=== PATIENT | female | born 1980 | race African-American/Black ===

== ENCOUNTER 2016-10-08 20:43 | Emergency (ER) ==
[2016-10-08 21:17] VITALS: BP 162/092
--- NOTE | 2016-10-08 21:29 | PROVIDER DOCUMENTATION ---
HPI-Musculoskeletal Pain/Inj - GENERAL Chief Complaint: Extremity Pain Stated Complaint: LEG PAIN Time Seen by Provider: 10/08/16 21:19 Source: patient - HX OF PRESENT ILLNESS-MUSKULOSKELTAL Nature of Presenting Problem: PT IS A 35YOF PRESENTING TO THE ED C/O LLE PAIN. PT HAS A HISTORY OF LLE CELLULITIS AND TODAY ITS HURTING WORSE THAN BEFORE. NO OTHER COMPLAINTS NOTED AT THIS TIME Quality of Pain: reports: aching, throbbing Severity in ED: moderate Onset/Duration: 24 hours ago Timing: still present Modifying Factors: improves with: nothing Any recent injury?: No Locality of Occurance: Home Similar Symptoms Previously?: No Recently seen or treated by another doctor?: No Review of Systems - Adult - REVIEW OF SYSTEMS - ADULT Constitutional: reports: no symptoms reported Eyes: reports: no symptoms reported Ears, Nose, Mouth & Throat: reports: no symptoms reported Cardiovascular: reports: no symptoms reported Respiratory: reports: no symptoms reported Gastrointestinal: reports: no symptoms reported Genitourinary: reports: no symptoms reported Musculoskeletal: reports: see HPI, muscle aches, muscle weakness. denies: neck pain Integumentary: reports: see HPI, skin sores/ulcer, skin thickening. denies: hair loss Neurological: reports: no symptoms reported Psychiatric: reports: no symptoms reported Endocrine: reports: no symptoms reported Hematologic/Lymphatic: reports: no symptoms reported Allergic/Immunologic: reports: no symptoms reported All Other Systems: Reviewed and Negative Past History - Adult - PAST MEDICAL HISTORY-ADULT Review of Records: reports: Old Records Reviewed, Nursing Assessment Review, Medications Reviewed, Social history reviewed & non-contributory. Major Childhood Illnesses: reports: denies history Cardiovascular: reports: denies history Respiratory: reports: denies history Gastrointestinal: reports: denies history Obstetrical/Gynecological: reports: denies history Genitourinary: reports: denies history Musculoskeletal: reports: denies history Neurological: reports: denies history Endocrine/Immune: reports: denies history Other Conditions: reports: denies history - IMMUNIZATION STATUS Childhood Immunizations: See Nurse Assessment Flu Vaccine: See Nurse Assessment - FAMILY HISTORY Family History: reviewed, not pertinent - SOCIAL HISTORY Smoking: cigarettes, less than 1 pack/day Provider spent 3-5 mins advising pt. on dangers of tobacco.: Discussed manners to quit use, and f/u contacts for add'l counseling. Substance Use: none/never, denies Alcohol Use Frequency: never Living Situation: family Physical Exam-Injury Related - Physical Exam-Injury Related Initial Vital Signs Reviewed: Yes General Appearance: alert, mild distress, anxious. negative: appears well, no apparent distress Eyes: PERRL/EOMI, pink conjunctivae, fundi clear, no AV nicking Head, Ears, Nose, Mouth & Throat: normocephalic/atraumatic, moist mucous membranes, normal ENT inspection, TMs normal, pharynx normal Neck: non-tender, full range of motion, supple, normal inspection Respiratory: chest non-tender, lungs clear, normal breath sounds, no pleuratic chest pain, no respiratory distress, no accessory muscle use Cardiovascular: normal peripheral pulses, regular rate, rhythm, no edema, no gallop, no JVD, no murmur Abdominal Exam: normal bowel sounds, non tender, soft, no organomegaly, no pulsatile mass Lymphatic: no adenopathy Back Exam: normal inspection, no CVA tenderness, no vertebral tenderness Extremity: no calf tenderness, normal capillary refill, inflammation, pedal edema, tenderness. negative: normal range of motion, non-tender, normal gait, normal inspection, no pedal edema Integumentary: normal color, warm/dry Neurologic: chief fishery division II-XII nml as tested, grossly normal, no motor/sensory deficits Psych/Mental Status: normal mood/affect, normal thought content, normal thought process, oriented x 3 - Glascow Coma Score Best Eye Response ([place]): (4) open spontaneously Best Verbal Response (Yadi): (5) oriented Best Motor Response ([place]): (6) obeys commands Progress - PLAN OF CARE/RESULTS Progress/Plan/Lab Results: Vital Signs - 24 hr 10/08/16 21:13 Temperature 96.9 F L Pulse Rate 84 Respiratory 18 Rate Blood Pressure 162/092 O2 Sat by Pulse 98 Oximetry Vital Signs - 24 hr 10/08/16 21:13 Temperature 96.9 F L Pulse Rate 84 Respiratory 18 Rate Blood Pressure 162/092 O2 Sat by Pulse 98 Oximetry Departure - Departure Time of Disposition Order: 21:28 DIAGNOSIS: Cellulitis Qualifiers: Site of cellulitis: extremity Site of cellulitis of extremity: lower extremity Laterality: left Qualified Code(s): L03.116 - Cellulitis of left lower limb Disposition: HOME 01 Certified Medical Emergency: Emergent Condition: Stable Prescriptions: Sulfamethoxazole/Trimethoprim [Bactrim Ds Tablet] 2 each PO BID #40 tablet Clindamycin [Cleocin] 300 mg PO Q6HR #40 capsule Prednisone 20 mg PO BID #10 tablet Attestation - Scribe Verification/Attestation Scribe:: Denia Abdullahi Acting as Scribe for:: Roverto Addison Scribe documention review:: This chart was documented by a scribe and accurately reflects the service the provider performed and the decisions made by the provider. Physician Attestation - Physician Attestation I, the provider, attest to the following statement:: Roverto Addison Physician documentation Attestation:: This documentation recorded by the scribe accurately reflects the service I personally performed and the decisions made by me.
== END 2016-10-08 21:32 | disposition home or self-care (01) ==
LOC: P.ED 20:43
DX: L03.116 Cellulitis of left lower limb (principal); M79.605 Pain in left leg; M79.1 Myalgia; M62.81 Muscle weakness (generalized); L98.9 Disorder of the skin and subcutaneous tissue, unspecified; R23.4 Changes in skin texture; F17.210 Nicotine dependence, cigarettes, uncomplicated; Z71.6 Tobacco abuse counseling

== ENCOUNTER 2019-03-21 21:00 | Inpatient (IN) ==
[2019-03-21 21:45] LABS: BASO% 0.3 % (0.0-0.8); EOS% 0.8 % (0.0-10.0); HEMATOCRIT 35.1 % (37.0-47.0); HEMOGLOBIN 11.2 g/dL (12.0-16.0); IMM GRAN% 0.1 % (0.0-0.5); LYMPH% 16.7 % (20.5-51.1); MCH 20.8 PG (27-31); MCHC 31.9 g/dL (33-37); MCV 65.2 FL (81-99); MPV 9.8 FL (7.4-10.4); NEUT% 76.1 % (42.2-75.2); PLT 264 X1000 (130-400); RBC 5.38 XMIL (4.2-5.4); WBC 13.45 X1000 (4.8-10.8)
[2019-03-21 21:46] LABS: BASO# 0.04 X1000 (0.0-0.2); EOS# 0.11 X1000 (0.0-0.7); IMM GRAN# 0.02 X1000 (0.0-0.04); LYMPH# 2.24 X1000 (1.2-3.4); MONO# 0.81 X1000 (0.11-0.59); NEUT# 10.23 X1000 (1.4-6.5)
[2019-03-21 22:21] LABS: AGAP 14; ALB/GLOB RATIO 1.1; ALBUMIN 4.6 g/dL (3.5-5.0); ALKALINE PHOSPHATASE 92 U/L (32-104); BUN 8 mg/dL (8-22); CALCIUM 9.7 mg/dL (8.8-10.2); CHLORIDE 100 mmol/L (98-107); COSMO 273; CREATININE 0.5 mg/dL (0.5-0.9); ESTIMATED GFR > 60; GLUCOSE 86 mg/dL (70-104); GOT 14 U/L (10-30); GPT 14 U/L (10-36); POTASSIUM 3.6 mmol/L (3.5-5.1); SODIUM 138 mmol/L (136-145); TCO2 24 mmol/L (25-35); TOTAL BILIRUBIN 0.35 mg/dL (0.20-1.00); TOTAL PROTEIN 8.6 g/dL (6.3-8.3)
--- NOTE | 2019-03-21 23:02 | PROVIDER DOCUMENTATION ---
HPI-Fever - General Chief Complaint: Rash Stated Complaint: CELLULITIS Time Seen by Provider: 03/21/19 22:35 Source: patient Allergies/Adverse Reactions: Patient Allergies Allergy/AdvReac Type Severity Reaction Status Date / Time bismuth subsalicylate Allergy SWELLING Verified 01/19/15 18:47 [From Pepto-Bismol] Home Medications: Home Medication List Medication Instructions Recorded Confirmed Last Taken Type Uag386/FA/Omega3/Dha/Fish Oil 2 each PO DAILY 03/10/18 03/10/18 03/09/18 09:00 History [ Gummies] Amlodipine [Norvasc] 10 mg PO DAILY #30 tab 03/12/18 Unknown Rx Hydrocodone/APAP 5 mg/325 mg 1 ea PO Q3-4H PRN PRN #20 tab 03/12/18 Unknown Rx [[place]-5] Labetalol [Trandate] 200 mg PO TID #120 tab 03/12/18 Unknown Rx - History of Present Illness-Fever Nature of Presenting Problem: [id number] presents to the ER with c/o cellulitis to her RLE. She reports that she has had cellulitis in her lower extremities in the past but never this bad. She states that approx 1 week ago, she had a mosquito bite to the back of her right leg. Shortly after her leg began to swell. She went to the doctor and was diagnosed with a UTI. The MD placed her on Macrobid. The patient states she thought the antibiotic was for both the cellulitis and her UTI. However, her leg continued to swell and became red. She reports today she began to run fever and was unable to bear weight on the extremity. T-max (101.2) Fever Severity/Quality: reports: greater than 100.5 F Onset/Duration: reports: 1 week ago Timing: reports: getting worse Context: reports: none Recent Illness?: reports: UTI Cognitive Baseline: alert, oriented x3 Associated Symptoms: reports: trouble walking Similar Symptoms Previously?: Yes Recently seen or treated by another doctor?: Yes - Glascow Coma Score Best Eye Response ([place]): (4) open spontaneously Best Verbal Response ([place]): (5) oriented Best Motor Response ([place]): (6) obeys commands Yadi Total: 15 Review of Systems - Adult - REVIEW OF SYSTEMS - ADULT Constitutional: reports: see HPI, chills, fever Eyes: reports: no symptoms reported Ears, Nose, Mouth & Throat: reports: no symptoms reported. denies: ear discharge, ear pain, epistaxis, hoarseness, throat swelling Cardiovascular: reports: no symptoms reported. denies: chest pain, poor circulation, syncope Respiratory: reports: no symptoms reported. denies: chronic cough, dyspnea on exertion, shortness of breath, wheezing Gastrointestinal: reports: no symptoms reported. denies: abdominal pain, diarrhea, nausea, vomiting Genitourinary: reports: no symptoms reported Musculoskeletal: reports: no symptoms reported Integumentary: reports: see HPI, other (RLE cellulitis) Neurological: reports: no symptoms reported Psychiatric: reports: no symptoms reported Endocrine: reports: no symptoms reported Hematologic/Lymphatic: reports: no symptoms reported Allergic/Immunologic: reports: no symptoms reported All Other Systems: Reviewed and Negative Past History - Adult - PAST MEDICAL HISTORY-ADULT Review of Records: reports: Old Records Reviewed, Nursing Assessment Review, Medications Reviewed, Social history reviewed & non-contributory. Major Childhood Illnesses: reports: denies history Cardiovascular: reports: denies history Respiratory: reports: denies history Gastrointestinal: reports: denies history Obstetrical/Gynecological: reports: denies history Genitourinary: reports: denies history Musculoskeletal: reports: denies history Neurological: reports: denies history Endocrine/Immune: reports: denies history Other Conditions: reports: denies history - PRIOR SURGERIES/PROCEDURES Surgical/Procedure History: reports: - IMMUNIZATION STATUS Childhood Immunizations: See Nurse Assessment Flu Vaccine: See Nurse Assessment - FAMILY HISTORY Family History: reviewed, not pertinent - SOCIAL HISTORY Smoking: denies Substance Use: denies Living Situation: family Physical Exam-General - PHYSICAL EXAM-ADULT Initial Vital Signs Reviewed: Yes - CONSTITUTIONAL General Appearance: alert, mild distress - EYES Eyes: PERRL/EOMI, pink conjunctivae - HEAD, EARS, NOSE, MOUTH & THROAT HENMT: normocephalic/atraumatic, moist mucous membranes - NECK Neck: non-tender, full range of motion, normal inspection - RESPIRATORY Respiratory: chest non-tender, lungs clear, normal breath sounds - CARDIOVASCULAR Cardiovascular: normal peripheral pulses, regular rate, rhythm - GASTROINTESTINAL (ABDOMEN) Abdominal Exam: normal bowel sounds, non tender, soft - LYMPHATIC Lymphatic: no adenopathy - MUSCULOSKELETAL Back Exam: normal inspection Extremity: normal range of motion, erythema (RLE), inflammation (RLE), tenderness (RLE). negative: normal gait Peripheral Pulses: radial (R): 2+, radial (L): 2+, dorsalis-pedis (R): 2+, dorsalis-pedis (L): 2+ - SKIN Integumentary: erythema (RLE), tenderness (RLE), warm (RLE) - NEUROLOGIC Neurologic: grossly normal - PSYCHIATRIC Psych/Mental Status: oriented x 3 Progress - PLAN OF CARE/RESULTS Progress/Plan/Lab Results: Vital Signs - 8 hr 03/21/19 21:04 Temperature 101.2 F H Pulse Rate 116 H Respiratory Rate 20 Blood Pressure 124/84 O2 Sat by Pulse Oximetry 99 Laboratory Results - last 24 hr 03/21/19 03/21/19 03/21/19 21:18 21:18 21:18 WBC 13.45 H RBC 5.38 Hgb 11.2 L Hct 35.1 L MCV 65.2 L MCH 20.8 L MCHC 31.9 L RDW Std Deviation 17.0 H Plt Count 264 MPV 9.8 Immature Gran % (Auto) 0.1 Neut % (Auto) 76.1 H Lymph % (Auto) 16.7 L [place] % (Auto) 6.0 Eos % (Auto) 0.8 Baso % (Auto) 0.3 Immature Gran # (Auto) 0.02 Neut # (Auto) 10.23 H Lymph # (Auto) 2.24 [place] # (Auto) 0.81 H Eos # (Auto) 0.11 Baso # (Auto) 0.04 Sodium 138 Potassium 3.6 Chloride 100 Carbon Dioxide 24 L Anion Gap 14 BUN 8 Creatinine 0.5 Estimated GFR/1.73 m2 > 60 BUN/Creatinine Ratio 16 Glucose 86 Calculated Osmolality 273 Calcium 9.7 Total Bilirubin 0.35 AST 14 ALT 14 Alkaline Phosphatase 92 Total Protein 8.6 H Albumin 4.6 Globulin 4.0 Albumin/Globulin Ratio 1.1 Plasma Lactate 0.8 Orders Category Date Time Status BLOOD CULTURE [BLDCUL] Stat Lab 03/21/19 21:18 Ordered CBC WITH ELECTRONIC DIFF [HEME] Stat Lab 03/21/19 21:18 Completed COMPREHENSIVE METABOLIC PANEL [CHEM] Stat Lab 03/21/19 21:18 Completed LACTATE, PLASMA [CHEM] Stat Lab 03/21/19 21:18 Completed patient verbalizes an understanding of POC and agrees with treatment rendered here today. Result Diagrams: 03/21/19 21:18 03/21/19 21:18 - CONSULTS/PCP/HOSPITALIST Notification #1 *Consult/PCP/Hospitalist*: Dr Austin Time Discussed: 23:20 Reason/Comments: RLE cellulitis Consult Disposition: Admit Departure - Departure Date of Disposition Decision: 03/21/19 Time of Disposition Decision: 23:20 DIAGNOSIS: Cellulitis, leg Qualifiers: Laterality: right Qualified Code(s): L03.115 - Cellulitis of right lower limb Disposition: ADMITTED INPATIENT 09 Certified Medical Emergency: Emergent Condition: Critical Additional Freetext Instructions: ED Follow Up Instructions: You have been treated by a care provider in the Emergency Department. These instructions are being provided to you so you can have an understanding of how to care for yourself upon discharge. Upon discharge from the Emergency Department, you are responsible for making arrangements for follow-up care by a physician of your choice. Take all prescribed medications as directed. Return to the Emergency Department immediately for any new or worsening symptoms. You may call the Physician Referral phone number at [phone] to obtain a list of Physicians who are taking new patients. Referrals and Follow-Ups: Arden Aguilar MD [Primary Care Provider] - - Critical Care Note This patient required my direct & personal management of CC.: No Attestation - Physician/ MACARIO Attestation Patient care was provided by Advanced Practice Provider:: Yes Advanced Practice Provider:: Ramos Morales Advanced Practice Provider documentation review:: The Mid-level provider documentation, treatment plan and medical decision making was reviewed by the physician who agrees with all treatment and medical decision making by the MLP. The physician spent face to face time with patient:: No Advanced Practice Provider documentation review:: Supervising physician onsite and consulted in the evaluation and care of this patient. The physician did not have a face to face encounter with the patient.
[2019-03-22] MEDS ORDERED: TORADOL IV ONE (00:10)
[2019-03-22] MEDS ORDERED: VANCOMYCIN IV PER PHARMACY MISC SCH ×2 (00:15→01:58)
[2019-03-22] MEDS ORDERED: MORPHINE IV ONE (00:48)
[2019-03-22] MEDS ORDERED: VANCOMYCIN 2,000 MG in NS 500 ML IV ONE (01:00)
[2019-03-22 01:09] LABS: RETIC% 0.71 % (0.8-2.1); RETIC-HE 20.9 PG (28.2-36.6)
[2019-03-22] MEDS ORDERED: TYLENOL PO PRN (01:58)
[2019-03-22] MEDS ORDERED: NS 1,000 ML IV SCH (01:58)
[2019-03-22] MEDS ORDERED: ZOFRAN IV PRN (01:58)
--- NOTE | 2019-03-22 02:22 | HISTORY AND PHYSICAL ---
PRIMARY CARE PHYSICIAN: Dr. Arden Aguilar. REASON FOR ADMISSION: A 5-day history of right lower extremity swelling, pain, and redness. HISTORY OF PRESENT ILLNESS: Ms. Jolynn Cardoza is a 38-year-old, woman who has a past medical history of hypertension. Reports that she was bitten by some insect about 5 to 6 ago, and the surrounding the spot she noticed that some pain had been progressing, to the point that 3 days ago she noticed redness on the anterior lateral aspect of her right leg. The redness has progressed along with pain, which has simultaneously been getting worse. Today, she came in because she developed some subjective fever and chills, and the pain was unbearable, to the point she could not even bear weight on her right leg. She denied any antecedent history of trauma or long-distance travel. No polyuria or polydipsia. No cardiorespiratory complaints. No GI or complaints. No focal neurological complaints. REVIEW OF SYSTEMS: Twelve system review was done. ALLERGIES: Pepto-Bismol. HOME MEDICATIONS: Have not been reconciled, although she mentions she takes labetalol and amlodipine. SURGICAL HISTORY: Two C-sections. FAMILY HISTORY: Positive for breast, ovarian, uterine cancer in 1st degree relatives, and type 2 diabetes also positive. SOCIAL HISTORY: Does not smoke, drink, or use drugs. LABS: White count 13,000, hemoglobin and hematocrit 11 and 35, MCV 65, RDW 17, with 76% neutrophils, platelets 263,000. Potassium 3.6. Glucose is 86. Lactate is normal. PHYSICAL EXAMINATION: GENERAL: Morbidly obese, woman. She is in mild distress from the pain of the right lower extremity. VITAL SIGNS: Blood pressure 160/91, heart rate 99, respirations 20, temperature is 98.9 degrees. HEENT: Head is normocephalic, atraumatic. Eyes: IVORY, EOMI. She is anicteric, not pale. ENT and oropharyngeal exam is grossly normal. NECK: Supple. No JVD or carotid bruit. No thyromegaly. CHEST: Clear with auscultated. Good air entry both lung sotelo. CARDIOVASCULAR: First and 2nd heart sounds are heard. No gallops, murmurs, rubs. Rhythm is regular. ABDOMEN: Protuberant, soft, nontender. No mass or organomegaly. Bowel sounds are normal. RECTAL: Deferred at this time. EXTREMITIES: 2+ pitting edema and swelling of the right lower extremity. It is very warm to hot to touch, and it is tender to touch. There is erythema on the anterolateral aspect of the right lower extremity from the knee down to the ankle area. There is no induration of the skin. No fluctuance appreciated. Pulses distally in all extremities are full, regular, symmetrical. NEUROLOGICAL: No gross focal deficits. SKIN: Intact other than the findings noted as above. MUSCULOSKELETAL: Grossly normal. ASSESSMENT: 1. Right lower extremity cellulitis. 2. Hypertension, uncontrolled. 3. Morbid obesity. PLAN: We will do a venous Doppler study of the right lower extremity to rule out coexistent DVT. We will start patient on antibiotics of vancomycin and clindamycin to treat probable staph or strep infection. Keep that leg elevated. Will treat patient symptomatically with pain medications, screening for type 2 diabetes. Resume home medications when official medication reconciliation is reconciled. cc: MD Arden Michelle MD
[2019-03-22] MEDS: TYLENOL LIQUID PO SCH ×4 (02:36→22:24)
[2019-03-22] MEDS: LOVENOX SUBQ SCH (02:37)
[2019-03-22] MEDS: TORADOL IV SCH ×4 (02:37→22:24)
[2019-03-22] MEDS: OXY IR PO SCH ×6 (02:37→22:24)
[2019-03-22] MEDS: CLINDAMYCIN 900 MG/D5W 900 MG/50 ML IVPB IV SCH ×2 (03:32→10:28)
[2019-03-22 09:02] LABS: HEMATOCRIT 32.3 % (37.0-47.0); MCH 20.4 PG (27-31); MCV 65.9 FL (81-99); MPV 10.8 FL (7.4-10.4); RBC 4.9 XMIL (4.2-5.4); RDW 16.8 % (11.5-14.5); WBC 11.59 X1000 (4.8-10.8)
[2019-03-22 09:08] LABS: AGAP 8; BUN 9 mg/dL (8-22); CALCIUM 8.4 mg/dL (8.8-10.2); CHLORIDE 102 mmol/L (98-107); COSMO 269; CREATININE 0.6 mg/dL (0.5-0.9); ESTIMATED GFR > 60; GLUCOSE 108 mg/dL (70-104); IRON SATURATION 7 %; POTASSIUM 3.7 mmol/L (3.5-5.1); SODIUM 135 mmol/L (136-145); TCO2 25 mmol/L (25-35); TIBC 371 ug/dL; TOTAL IRON 27 ug/dL (49-151); UNBOUND IRON 344 ug/dL (112-346)
[2019-03-22 09:34] LABS: RETIC% 0.7 % (0.8-2.1); RETIC-HE 18.7 PG (28.2-36.6)
[2019-03-22 09:55] LABS: FERRITIN 48 ng/mL (13-150)
[2019-03-22] MEDS ORDERED: VANCOMYCIN 2,000 MG in NS 500 ML IV SCH (13:00)
--- NOTE | 2019-03-22 15:33 | PROGRESS NOTE ---
DATE: 03/22/2019 SUBJECTIVE: The patient is resting in bed. She states that her leg feels a lot better since admission. OBJECTIVE: Vital Signs: Temperature 97.5 degrees, blood pressure 118/61, heart rate 89, respirations 20, O2 saturations 96% on room air. General: This is a young female lying in bed in no acute distress. Heart: S1, S2 normal. Regular rate and rhythm. Lungs: Clear to auscultation bilaterally. Abdomen: Positive bowel sounds. Soft, nontender, nondistended. Extremities: The right lower aspect of the leg is erythematous and warm to touch. There is also 1+ edema. Neurologic: The patient is alert and oriented x3. No focal neurologic deficits noted. LABS: White blood cell count 11, hemoglobin 10, hematocrit 32, platelets 221,000. Sodium 135, potassium 3.7, chloride 102, CO2 25, BUN 9, creatinine 0.9, glucose 108. ASSESSMENT AND PLAN: 1. Right lower extremity cellulitis. Slowly improving. Continue with cefazolin as directed by Dr. Mejia. The patient has also been advised to keep her leg elevated. 2. Morbid obesity. The patient has been counseled about weight loss and proper diet. 3. Iron deficiency anemia. We will start the patient on iron supplementation. 4. Leukocytosis. Improved. Continue with antibiotic therapy. 5. Deep vein thrombosis prophylaxis. Continue on Lovenox. cc: Munira Malcolm MD MTDD
[2019-03-22] MEDS: KEFZOL 2 GM/D5W 2 GM/50 ML IVPB IV SCH ×2 (18:10→22:24)
--- NOTE | 2019-03-22 20:03 | INFECTIOUS DISEASE CONSULT REP ---
DATE: 03/22/2019 CONCLUSION: The patient is admitted to the hospital with right leg cellulitis. The patient is predisposed to this because she is obese and has bilateral leg edema. RECOMMENDATIONS: I have discontinued vancomycin and clindamycin and I put the patient on Ancef 2 g IV every 8 hours. Some of the side effects of the antibiotic, including rash and diarrhea have been explained the patient who agrees with treatment. I have ordered that the foot of the patient's bed should be elevated with the manual gatch continuously. Also, I told the patient to elevate her legs for as long as she can. DISCUSSION: The patient, approximately a week ago, developed progressive erythema and swelling of the right leg. Also, she had fever and chills. She has been admitted to the hospital. Here her CBC shows a white count of 11,590, hemoglobin 10, platelet count 221,000. Creatinine is 0.6. GFR is greater than 60. Liver function studies are normal. PAPER SPOOLER HISTORY: She is a 3 para 2, AB1. She delivered both her children by . PREVIOUS HOSPITALIZATIONS AND OPERATIONS: She has had 2 C sections and a miscarriage. PREVIOUS HOSPITALIZATIONS AND OPERATIONS: She has had admission for strep throat. She has had, as mentioned above, 2 C sections and a miscarriage. MEDICAL DISEASES: Patient is obese. She also has hypertension. INFECTIOUS DISEASE HISTORY: Positive for urinary tract infection and cellulitis. FAMILY HISTORY: Positive for diabetes mellitus, stroke, cancer and obesity. SOCIAL HISTORY: [place] She is . She occasionally has an alcoholic drink. She does not smoke cigarettes or abuse drugs. She works at a [employer]. MEDICATIONS: Her only home medicine is Norvasc. PHYSICAL EXAMINATION: Vital Signs: Temperature is 97.5 degrees, pulse 118, respirations 20, blood pressure 118/61. Patient weighs 306 pounds. General: This is an obese, young female. She is in no acute distress. Head/eyes/ears/nose/throat: She can hear my spoken words and see near objects. No white coating was noted on her tongue. Neck: No meningismus. Lungs: Clear to auscultation. Cardiovascular: Heart rate is regular. Abdomen: Soft and nontender. Extremities: Left leg is edematous, but not erythematous or tender. The right leg is edematous and it also is erythematous and tender. The patient does not have tinea pedis in either foot. Neurologic: The patient is alert. She can move her extremities. There is no tremor. Her sensation is intact to touch. Her memory as regarding her medical history is intact. The patient works at a [employer]. Thank you for the consult. cc: Jewel Mejia MD
[2019-03-22] MEDS: ICAR-C PO SCH (22:23)
[2019-03-23] MEDS ORDERED: VANCOMYCIN 2,000 MG in NS 500 ML IV SCH (01:00)
[2019-03-23] MEDS: TORADOL IV SCH ×4 (03:41→21:49)
[2019-03-23] MEDS: TYLENOL LIQUID PO SCH ×4 (03:41→21:48)
[2019-03-23] MEDS: OXY IR PO SCH ×6 (03:41→21:50)
[2019-03-23] MEDS: LOVENOX SUBQ SCH ×2 (03:42→06:16)
[2019-03-23] MEDS: KEFZOL 2 GM/D5W 2 GM/50 ML IVPB IV SCH ×4 (05:49→21:50)
[2019-03-23 06:45] LABS: HEMOGLOBIN A1C 5.8 % (4.8-6.0)
[2019-03-23 06:47] LABS: BASO# 0.02 X1000 (0.0-0.2); BASO% 0.3 % (0.0-0.8); EOS# 0.16 X1000 (0.0-0.7); EOS% 2.1 % (0.0-10.0); HEMATOCRIT 30.3 % (37.0-47.0); HEMOGLOBIN 9.4 g/dL (12.0-16.0); LYMPH# 1.95 X1000 (1.2-3.4); LYMPH% 25.4 % (20.5-51.1); MCH 20.5 PG (27-31); MONO# 0.59 X1000 (0.11-0.59); MONO% 7.7 % (1.7-9.3); MPV 11.3 FL (7.4-10.4); NEUT# 4.95 X1000 (1.4-6.5); NEUT% 64.5 % (42.2-75.2); PLT 231 X1000 (130-400); RBC 4.59 XMIL (4.2-5.4); RDW 16.7 % (11.5-14.5); WBC 7.67 X1000 (4.8-10.8)
[2019-03-23 07:06] LABS: AGAP 11; BUN 8 mg/dL (8-22); CALCIUM 8.4 mg/dL (8.8-10.2); CHLORIDE 105 mmol/L (98-107); COSMO 274; CREATININE 0.5 mg/dL (0.5-0.9); ESTIMATED GFR > 60; GLUCOSE 100 mg/dL (70-104); POTASSIUM 3.8 mmol/L (3.5-5.1); SODIUM 138 mmol/L (136-145); TCO2 22 mmol/L (25-35)
[2019-03-23] MEDS: ICAR-C PO SCH ×2 (09:57→21:48)
--- NOTE | 2019-03-23 17:55 | PROGRESS NOTE ---
DATE: 03/23/2019 SUBJECTIVE: Today Ms. Cardoza refers to be doing fairly okay. Still has some pains in the left leg. OBJECTIVE: Vital signs: Blood pressure is 148/86, pulse of 77, respiration is 18, temperature 98.6 degrees. Patient is saturating 97% on room air. General: Ms. Cardoza is a 38-year-old female. She is in bed, no distress. HEENT: Mucosa is pink and moist. Anicteric. Acyanotic. Neck: Supple. Chest: Clear to auscultation. No crepitations. No rhonchi. Cardiovascular: Regular rate and rhythm. No murmurs. No gallops. Abdomen: Soft, distended but nontender. Extremities: The right lower extremity is minimally swollen distally. It is warm and it is tender. JOB FORWARDER: Patient is awake, alert, and oriented. LABORATORY DATA: The patient has microcytic anemia with normal WBC and normal platelet. Chemistry is also completely normal. So far, blood cultures have been 48 hours negative 1/2. CURRENT MEDICATIONS: Ancef. Vancomycin has been discontinued. ASSESSMENT AND PLAN: 1. Right lower extremity cellulitis. Patient is currently on Ancef. 2. Morbid obesity with body mass index of 56.0. 3. Iron deficiency anemia. We will start replacement once infection is under control. 4. Leukocytosis, resolved. 5. Microcytic anemia secondary to iron deficiency. cc: Popeye Zhu MD
[2019-03-24] MEDS: OXY IR PO SCH ×3 (02:00→10:50)
[2019-03-24] MEDS: TYLENOL LIQUID PO SCH ×2 (06:00→08:30)
[2019-03-24] MEDS: LOVENOX SUBQ SCH (06:30)
[2019-03-24] MEDS: KEFZOL 2 GM/D5W 2 GM/50 ML IVPB IV SCH ×2 (06:57→07:00)
[2019-03-24 08:03] VITALS: BP 153/87
[2019-03-24] MEDS: ICAR-C PO SCH (08:30)
--- NOTE | 2019-03-24 11:01 | INFECTIOUS DISEASE PROGRESS NO ---
DATE: 03/24/2019 The patient's leg cellulitis has improved quite a bit. She is going to be going home today on Keflex 500 mg p.o. every 8 hours and also the patient has been given instructions to elevate her legs as much as possible. She will be given an appointment for 2 weeks to come back to my office in 2 weeks but she will be told that if her cellulitis has all cleared up, she can cancel the appointment. cc: Jewel Mejia MD
--- NOTE | 2019-03-24 21:52 | DISCHARGE SUMMARY ---
ADMISSION DATE: 03/21/2019 DISCHARGE DATE: 03/24/2019 DISPOSITION: Home. FOLLOWUP: 1. Dr. Mejia in about [address] Aguilar. CONSULTATIONS DURING THIS ADMISSION: ID was consulted. Patient was seen by Dr. Mejia. INVASIVE PROCEDURES DONE DURING THIS ADMISSION: None. IMAGES STUDIES OF SIGNIFICANCE: A venous Doppler of the right lower extremity was done. At the time of the discharge, official report was not out; however, this was presumed to be negative. ADMISSION DIAGNOSES: 1. Right lower extremity cellulitis. 2. Hypertension. 3. Morbid obesity. DIAGNOSES AT THE TIME OF DISCHARGE: 1. Right lower extremity cellulitis, with negative Doppler ultrasound. 2. Morbid obesity, with body mass index of 56.0. 3. Iron deficiency anemia. 4. Microcytic anemia, secondary to iron deficiency. 5. Tinea pedis. DISCHARGE MEDICATIONS: 1. Amlodipine 10 mg p.o. daily. 2. Keflex 500 b.i.d. p.o. q.8. 3. Miconazole cream. 4. Iron 1 tablet b.i.d. 5. Branch 7.5 q.6. PRESENTING COMPLAIN: A 5-day history of lower extremity pain. HISTORY OF PRESENTING COMPLAINT: Ms. Cardoza is a 38-year-old female, with a history of hypertension and morbid obesity with BMI of 56.0, who came to the emergency department because of a 5 day history of swelling and pain in the right lower extremity. Upon presentation, patient was evaluated. Was found to have cellulitis. Was admitted for further medical care. HOSPITAL COURSE: Ms. Cardoza was admitted to the medical floor. Was started on IV antimicrobial therapy and ID was consulted. During the hospital course, Ms. Cardoza continued to improve. Her white cell count got better. She was completely afebrile throughout the rest of the hospital course, and her vitals remained stable. Blood pressure was still on the upper normal to being high. She was started on her home medications. This morning, Ms. Cardoza refers to be doing a lot better. Her swelling looks remarkably improved. We think she will be okay to go home on oral pills. I have discussed this with Dr. Mejia and he is in agreement. The patient will be on Keflex for additional 7 days, and she will follow up with Dr. Mejia in 2 weeks' time. Ms. Cardoza has also been advised to lose some weight and also elevate the legs to help with venous return. All the discharge instructions have been discussed with her and she voiced understanding. During the hospital course, Ms. Cardoza was also found to have tinea pedis, and we think that the cellulitis is probably because of the tinea pedis, serving as a breakdown of the skin for invasion of the skin with pathogen that gave her the cellulitis. Miconazole cream has been given to her. She has also been advised on toe and feet hygiene. TIME SPENT FOR DISCHARGE: 35 minutes. cc: MD Dr. Lauren Ann Dr.
--- NOTE | 2019-03-25 13:05 | Extremity Venous Study ---
PROCEDURE NAME: Venous U/S Right Leg - 03/22/2019 REQUESTING PHYSICIAN: Dr. Austin. SEWAGE SCREEN OPERATOR: Fan. INDICATIONS: Edema and pain and redness x1 week to the right lower extremity. EQUIPMENT: [employer] Vivid E9 ultrasound system with a 9 L-D transducer. FINDINGS: Images of the right lower extremity venous system comparison shot to the left common femoral vein were obtained in both sagittal and transverse planes. Doppler was used to evaluate veins for spontaneity, phasicity, respiratory excursion, and digital augmentation. RESULTS: Reflux noted of bilateral common femoral veins but no obvious superficial or deep venous thrombosis noted. This is a somewhat limited study in areas due to large legs and edema per the cad technician's note. INTERPRETATION: No obvious superficial or deep venous thrombosis noted. Reflux bilateral common femoral veins. Technically difficult study, which may limit the interpretive ability. cc: MD Aamir Gutiérrez MD
== END 2019-03-24 11:26 | disposition home or self-care (01) | DRG 603 ==
LOC: ED 21:00 → 4N 21:01 → SUATTDRO 21:01 → 4N 03-22 13:40
PROVIDERS: ATTEND Internal Medicine